=== PATIENT | male | born 1995 | race Caucasian/White ===

== ENCOUNTER → 2017-04-23 | Outpatient (CLI) | payer BC ==
[~2017-04-23] MED LIST: PRD50T PO; RT-ALBUTEROL SULF 2.5 MG/3 ML PRE-MIX VIAL IH ONE
== END ==
LOC: RT 09:07
PROVIDERS: ATTEND Internal Medicine Critical Care Medicine
DX: J45.998 Other asthma (principal)
CPT/HCPCS: 94060; 94640; 94726; 94729

== ENCOUNTER 2017-06-06 20:28 | Emergency (ER) | payer BC ==
[~2017-06-06] VITALS: Ht 177.8 cm; Wt 55.8 kg
[~2017-06-06 20:28] MED LIST changes: -RT-ALBUTEROL SULF 2.5 MG/3 ML PRE-MIX VIAL IH ONE
[2017-06-06 20:55] VITALS: BP 122/86
[2017-06-06] MEDS ORDERED: FLUT1AER IH (21:02)
[2017-06-06] MEDS ORDERED: MONT4GRA PO (21:02)
[2017-06-06] MEDS ORDERED: SULF1TAB35 PO (21:05)
[2017-06-06] MEDS ORDERED: ONDA8TAB13 PO (21:05)
--- NOTE | 2017-06-06 21:06 | ED Integumentary General ---
General Chief Complaint: Skin/Wound Problems Stated Complaint: R KNEE POSS BROWN RECLUSE BITE Nursing Triage Note: PT HERE WITH C/O ABSCESS ON R KNEE FOR 1 DAY. Source: patient Exam Limitations: no limitations History of Present Illness Time seen by provider: 20:55 Initial Comments 21-year-old male patient presents to the emergency department complains of a spider bite to the right knee. Patient reports noticing the area yesterday. Worse today. Timing/Duration: yesterday, getting worse Location: extremities (right knee) Possible Cause: other (possible spider bite) Modifying Factors: worse with other (worse with palpation) Allergies and Home Medications Allergies Coded Allergies: peanut (Verified Allergy, Unknown, 04/23/17) Home Medications No Active Prescriptions or Reported Meds Constitutional: No chills, No fever, No malaise EENTM: no symptoms reported Respiratory: No cough, No short of breath Cardiovascular: no symptoms reported Gastrointestinal: No abdominal pain, No diarrhea, nausea, No vomiting Genitourinary: no symptoms reported Musculoskeletal: no symptoms reported Skin: see HPI Psychiatric/Neurological: Denies Headache, Denies Numbness, Denies Paresthesia , Denies Tingling All Other Systems Reviewed Negative Unless Noted: Yes (Negative excepted noted.) Past Otpktjf-Dcrnba-Lzuivz Hx Patient Social History Recent Foreign Travel: No Contact w/Someone Who Travel: No Recent Infectious Disease Expo: No Immunizations Up To Date Tetanus Booster (TDap): Less than 5yrs Seasonal Allergies Seasonal Allergies: Yes Surgeries History of Surgeries: Yes (wisdom teeth) Respiratory History of Respiratory Disorde: Yes Respiratory Disorders: Asthma Currently Using CPAP: No Currently Using BIPAP: No Cardiovascular History of Cardiac Disorders: No Neurological History of Neurological Disord: No Gastrointestinal History of Gastrointestinal Di: No Musculoskeletal History of Musculoskeletal Dis: No Endocrine History of Endocrine Disorders: No Cancer History of Cancer: No Psychosocial History of Psychiatric Problem: Yes Behavioral Health Disorders: Anxiety Integumentary History of Skin or Integumenta: No Blood Transfusions History of Blood Disorders: No Adverse Reaction to a Blood Tr: No Reviewed Nursing Assessment Reviewed/Agree w Nursing PMH: Yes Family Medical History Significant Family History: Diabetes Physical Exam Vital Signs Vital Sign - Last 12Hours 06/06/17 20:55 Temp 98.8 Pulse 94 Resp 18 B/P (MAP) 122/86 Pulse Ox 99 O2 Delivery Room Air Capillary Refill : Less Than 3 Seconds General Appearance: WD/WN, no apparent distress HEENT: PERRL/EOMI, pharynx normal Neck: supple, normal inspection Cardiovascular: normal peripheral pulses, no edema Extremities: no pedal edema, normal capillary refill Neurologic/Psychiatric: alert, normal mood/affect, oriented x 3 Skin: normal color, warm/dry, other (4 x 6 cm area of erythema and mild warmth of the right anterior knee with central scab. No active drainage, fluctuance, or induration noted.) Skin Problem Location: lower extremities (rt anterior knee) Skin Problem Character: erythema, tenderness, warm, other (4 x 6 cm area of erythema and mild warmth of the right anterior knee with central scab. No active drainage, fluctuance, or induration noted.) Progress/Results/Core Measures Results/Orders My Orders Orders - FERNANDO RICHARDSON Rx-Trimeth/Sulfameth Ds Tab (Rx-Bactrim/ (06/06/17 20:59) Rx-Ondansetron Po (Rx-Zofran Po) (06/06/17 20:59) Vital Signs/I&O Vital Sign - Last 12Hours 06/06/17 20:55 Temp 98.8 Pulse 94 Resp 18 B/P (MAP) 122/86 Pulse Ox 99 O2 Delivery Room Air Blood Pressure Mean: 98 Departure Impression Impression: Primary Impression: Cellulitis Qualified Codes: L03.115 - Cellulitis of right lower limb Disposition: HOME, SELF-CARE Condition: Improved Departure-Patient Inst. Decision time for Depature: 21:03 Referrals: DAR ALVAREZ MD (PCP/Family) Primary Care Physician Patient Instructions: Cellulitis (Skin Infection), Adult (DC) Add. Discharge Instructions: All discharge instructions reviewed with patient and/or family. Voiced understanding. Medications as instructed. Tylenol extra strength over-the- counter as directed for pain. Ibuprofen 800 mg by mouth every 8 hours as needed for pain. Elevate the right knee on pillows, ice pack for 20 minute intervals as needed for pain. Shower with antibacterial soap. Follow-up with Dr. Alvarez Friday as an outpatient for recheck, call first thing Friday morning for appointment time. Return to the emergency department for worsened pain, redness, fever, streaking up the leg, headache, vomiting, or any other concerns. Scripts Ondansetron (Ondansetron Odt) 8 Mg Tab.rapdis 8 MG PO Q6H Y for NAUSEA/VOMITING-1ST LINE, #10 TAB 0 Refills Prov: FERNANDO RICHARDSON 06/06/17 Sulfamethoxazole/Trimethoprim (Bactrim Ds Tablet) 1 Each Tablet 1 EACH PO BID, #20 TAB 0 Refills Prov: FERNANDO RICHARDSON 06/06/17 Work/School Note: Work Release Form Date Seen in the Emergency Department: Jun 06, 2017 Return to Work: Jun 08, 2017 Restrictions: No Restrictions FERNANDO RICHARDSON Jun 06, 2017 21:06
[2017-06-06] MEDS: RX-TRIMETH/SULFA. 160-800 MG (BACTRIM DS) TAB PPK#2 PO STA (21:14)
[2017-06-06] MEDS: RX-ONDANSETRON 4 MG ODT (ZOFRAN) PPK #4 PO STA (21:14)
--- OUTSIDE RECORDS SUMMARY | 2017-06-09 08:33 | XMS REPORT | Continuity of Care Document ---
Author Author [facility] Address Unknown Phone Unavailable Allergies Active Description Code Type Severity Reaction Onset Reported/Identified Relationship to Patient Clinical Status Yes peanut [id number] Drug Allergy Unknown N/A 04/23/2017 Medications Problems Date Dx Coded Attending Type Code Diagnosis Diagnosed By 06/17/2012 [facility], LUAN Cedeno V03.89 MENINGOCOCCAL DX 06/17/2012 [facility], LUAN A V06.1 TDAP DX 06/17/2012 [facility], LUAN A V03.89 MENINGOCOCCAL DX 06/17/2012 [facility], LUAN A V06.1 TDAP DX 06/17/2012 [facility], LUAN A V03.89 MENINGOCOCCAL DX 06/17/2012 [facility], LUAN A V06.1 TDAP DX 06/17/2012 JAYY STANTON, KASSIE V03.89 MENINGOCOCCAL DX 06/17/2012 JAYY STANTON, KASSIE V06.1 TDAP DX 06/17/2012 [facility], LUAN A V03.89 MENINGOCOCCAL DX 06/17/2012 [facility], LUAN A V06.1 TDAP DX 06/17/2012 JAYY STANTON, KASSIE V03.89 MENINGOCOCCAL DX 06/17/2012 JAYY STANTON, KASSIE V06.1 TDAP DX 06/17/2012 [facility], LUAN A V03.89 MENINGOCOCCAL DX 06/17/2012 [facility], LUAN A V06.1 TDAP DX 06/17/2012 [facility], LUAN A V03.89 MENINGOCOCCAL DX 06/17/2012 [facility], LUAN A V06.1 TDAP DX 06/17/2012 [facility], LUAN A V03.89 MENINGOCOCCAL DX 06/17/2012 [facility], LUAN A V06.1 TDAP DX 06/17/2012 [facility], LUAN A V03.89 MENINGOCOCCAL DX 06/17/2012 B[facility], LUAN A V06.1 TDAP DX 06/17/2012 BORJA [facility]SC[facility], LUAN A V03.89 MENINGOCOCCAL DX 06/17/2012 BORJA [facility]SC[facility], LUAN A V06.1 TDAP DX 06/17/2012 MELISSA HUDSON APRNYL A V03.89 MENINGOCOCCAL DX 06/17/2012 TIMOTHYDAKOTAHEleuterio BERUMENNANUJA A V06.1 TDAP DX 07/30/2012 Ot 784.2 SWELLING IN HEAD NECK 07/30/2012 Ot 786.05 SHORTNESS OF BREATH 07/30/2012 Ot V15.01 ALLERGY TO PEANUTS 09/24/2013 [facility], LUAN A 296.22 MO DEPRESSIVE SINGLE MODERATE 09/24/2013 BORJA [facility]SC[facility], LUAN A 296.22 MO DEPRESSIVE SINGLE MODERATE 09/24/2013 BORJA LSC[facility], LUAN A 296.22 MO DEPRESSIVE SINGLE MODERATE 09/24/2013 KASSIE HOPE MD 296.22 MO DEPRESSIVE SINGLE MODERATE 09/24/2013 BORJA LSCS, LUAN A 296.22 MO DEPRESSIVE SINGLE MODERATE 09/24/2013 KASSIE HOPE MD 296.22 MO DEPRESSIVE SINGLE MODERATE 09/24/2013 BORJA LSCS, LUAN A 296.22 MO DEPRESSIVE SINGLE MODERATE 09/24/2013 BORJA LSCS, LUAN A 296.22 MO DEPRESSIVE SINGLE MODERATE 09/24/2013 BORJA LSCS, LUAN A 296.22 MO DEPRESSIVE SINGLE MODERATE 09/24/2013 BORJA LSCS, LUAN A 296.22 MO DEPRESSIVE SINGLE MODERATE 09/24/2013 BORAJ LSCS, LUAN A 296.22 MO DEPRESSIVE SINGLE MODERATE 09/24/2013 ANUJA HUDSON APRN A 296.22 MO DEPRESSIVE SINGLE MODERATE 11/09/2013 KASSIE HOPE MD 300.23 AN SOCIAL PHOBIA 11/09/2013 KASSIE HOPE MD 314.00 ADHD INATTENTIVE 11/09/2013 BORJA LSCS, LUAN A 300.23 AN SOCIAL PHOBIA 11/09/2013 BORJA LSC[facility], LUAN A 314.00 ADHD INATTENTIVE 11/09/2013 KASSIE HOPE MD 300.23 AN SOCIAL PHOBIA 11/09/2013 KASSIE HOPE MD 314.00 ADHD INATTENTIVE 11/09/2013 BORJA LSCS, LUAN A 300.23 AN SOCIAL PHOBIA 11/09/2013 BORJA LSCS, LUAN A 314.00 ADHD INATTENTIVE 11/09/2013 BORJA LSCS, LUAN A 300.23 AN SOCIAL PHOBIA 11/09/2013 BORJA LSCS, LUAN A 314.00 ADHD INATTENTIVE 11/09/2013 BORJA LSCS, LUAN A 300.23 AN SOCIAL PHOBIA 11/09/2013 BORJA LSCS, LUAN A 314.00 ADHD INATTENTIVE 11/09/2013 BORJA LSCS, LUAN A 300.23 AN SOCIAL PHOBIA 11/09/2013 BORJA LSCS, LUAN A 314.00 ADHD INATTENTIVE 11/09/2013 BORJA LSCS, LUAN A 300.23 AN SOCIAL PHOBIA 11/09/2013 BORJA LSCS, LUAN A 314.00 ADHD INATTENTIVE 11/09/2013 RAJDAKOTAHE PULMONARY NURSE PRACTITIONER, ANUJA A 300.23 AN SOCIAL PHOBIA 11/09/2013 RAJDAKOTAHE PULMONARY NURSE PRACTITIONER, ANUJA A 314.00 ADHD INATTENTIVE 08/08/2014 RAJDAKOTAHE PULMONARY NURSE PRACTITIONER, ANUJA A 008.8 GASTROENTERITIS, VIRAL 08/08/2014 RAJOTTE PULMONARY NURSE PRACTITIONER, ANUJA A 079.99 VIRAL SYNDROME 08/08/2014 RAJOTTE PULMONARY NURSE PRACTITIONER, ANUJA A 787.02 NAUSEA ALONE 12/25/2015 RAMU STANTON, NUZHAT T Ot F17.210 NICOTINE DEPENDENCE, CIGARETTES, UNCOMPL 12/25/2015 RAMU STANTON, NUZHAT T Ot F41.9 ANXIETY DISORDER, UNSPECIFIED 12/25/2015 RAMU STANTON, NUZHAT T Ot R00.2 PALPITATIONS 12/25/2015 RAMU STANTON, NUZHAT T Ot R35.0 FREQUENCY OF MICTURITION 12/27/2015 RAMU STANTON, NUZHAT T Ot F17.210 12/27/2015 RAMU STANTON, NUZHAT T Ot F41.9 12/27/2015 RAMU STANTON, NUZHAT T Ot R00.2 12/27/2015 RAMU TSANTON, NUZHAT T Ot R35.0 01/25/2016 CRISTAL STANTON, DAR R Ot R06.02 01/26/2016 CRISTAL STANTON, DAR R Ot R06.02 SHORTNESS OF BREATH 01/29/2016 CRISTAL STANTON, DAR R Ot R06.02 SHORTNESS OF BREATH 02/14/2016 SOBEIDA BEE MDYD R Ot R06.02 SHORTNESS OF BREATH 02/14/2016 SOBEIDA BEE MDYD R Ot R06.02 SHORTNESS OF BREATH 04/17/2016 SOBEIDA BEE MDYD R Ot R06.02 SHORTNESS OF BREATH 04/17/2016 SOBEIDA BEE MDYD R Ot R06.02 SHORTNESS OF BREATH 04/19/2016 DEEPIKA NAJERA DO M Ot J45.998 OTHER ASTHMA 05/09/2016 DEEPIKA NAJERA DO Ot J45.998 OTHER ASTHMA 07/23/2016 SOBEIDA BEE MDYD R Ot R06.02 SHORTNESS OF BREATH 07/23/2016 DAR BEE MD R Ot R06.02 SHORTNESS OF BREATH 07/23/2016 DEEPIKA NAJERA DO Ot J45.998 OTHER ASTHMA 12/16/2016 SOBEIDA BEE MDYD R Ot R06.02 SHORTNESS OF BREATH 12/16/2016 DAR BEE MD R Ot R06.02 SHORTNESS OF BREATH 12/16/2016 DEEPIKA NAJERA DO M Ot J45.998 OTHER ASTHMA 04/23/2017 SOBEIDA BEE MDYD R Ot R06.02 SHORTNESS OF BREATH 04/23/2017 SOBEIDA BEE MDYD R Ot R06.02 SHORTNESS OF BREATH 04/23/2017 DEEPIKA NAJERA DO M Ot J45.998 OTHER ASTHMA 05/15/2017 DEEPIKA NAJERA DO M Ot J45.998 OTHER ASTHMA Procedures Code [place] [address] PSYCH DIAGNOSTIC EVALUATION 10/12/2013 12997 PSYTX PT&/FAMILY 45 MINUTES 10/22/2013 26292 PSYTX PT&/FAMILY 30 MINUTES 11/04/2013 78093 PSYTX PT&/FAMILY 45 MINUTES 12/06/2013 48332 PSYTX PT&/FAMILY 45 MINUTES 12/17/2013 14116 PSYTX PT&/FAMILY 45 MINUTES 01/14/2014 98495 PSYTX PT&/FAMILY 45 MINUTES 01/27/2014 81367 PSYTX PT&/FAMILY 45 MINUTES 01/31/2014 78572 PSYTX PT&/FAMILY 30 MINUTES 02/21/2014 Results Encounters ACCT No. Visit Date/Time Discharge Status Pt. Type Provider Facility Loc./Unit Complaint [id number] 08/08/2014 11:02:00 08/08/2014 23: 59:59 CLS Outpatient ANUJA HUDSON APRN [id number] 02/21/2014 14:00:00 02/21/2014 23: 59:59 CLS Outpatient BORJA LSLUAN Wilian [id number] 01/31/2014 11:56:00 01/31/2014 23: 59:59 CLS Outpatient BORJA LSCSLUAN Wilian [id number] 01/27/2014 10:33:00 01/27/2014 23: 59:59 CLS Outpatient BORJA LSCS LUAN Wilian [id number] 01/14/2014 13:30:00 01/14/2014 23: 59:59 CLS Outpatient BORJA LSCS LUAN Cedeno [id number] 12/17/2013 13:42:00 12/17/2013 23: 59:59 CLS Outpatient BORJA LSLUAN Wilian [id number] 12/07/2013 12:01:00 12/07/2013 23: 59:59 CLS Outpatient KASSIE HOPE MD [id number] 12/06/2013 10:30:00 12/06/2013 23: 59:59 CLS Outpatient BORJA LSCS LUAN Cedeno [id number] 11/09/2013 09:45:00 11/09/2013 23: 59:59 CLS Outpatient KASSIE HOPE MD [id number] 11/02/2013 14:30:00 11/02/2013 23: 59:59 CLS Outpatient BORJA LSCSMEAGHANLUAN A [id number] 10/22/2013 14:30:00 10/22/2013 23: 59:59 CLS Outpatient BORJA LSCS LUAN Cedeno [id number] 09/24/2013 14:21:00 09/24/2013 23: 59:59 CLS Outpatient BORJA LSCSLUAN Wilian [id number] 04/23/2017 09:07:00 2016 23:59:59 CLS Outpatient DEEPIKA NAJERA DO [facility] RT J45.998 [id number] 04/17/2016 07:20:00 2015 23:59:59 CLS Outpatient DEEPIKA NAJERA DO [facility] RT ASTHMA [id number] 01/25/2016 12:40:00 2015 23:59:59 CLS Outpatient DAR BEE MD [facility] CARD SOA [id number] 01/24/2016 12:25:00 2015 23:59:59 CLS Outpatient DAR BEE MD [facility] RAD PERSISENT SOA [id number] 12/25/2015 02:05:00 2015 03:22:00 DIS Emergency RAMU STANTON, NUZHAT Alaniz [facility] ER NAUSIA/VOMITING [id number] 06/06/2017 20:30:00 ACT Emergency FERNANDO LO [facility] ER R KNEE POSS BROWN RECLUSE BITE [id number] 07/30/2012 12:18:00 Document Registration
--- OUTSIDE RECORDS SUMMARY | 2017-06-09 08:33 | XMS REPORT ---
Author Author ANUJA HUDSON [facility] e[employer] Address Unknown Phone Unavailable Care Team Providers Care Rcp Name Role Phone ANUJA HUDSON CP Unavailable Allergies No Known Allergies Problems Problem Type Condition Code Onset Dates Condition Status Problem Social phobia 300.23 Active Problem Intestinal infection due to other organism, NEC 008.8 Active Problem Attention deficit disorder of childhood without mention of hyperactivity 314.00 Active Assessment Encounter for immunization Z23 Active Problem DTAP TEST V06.1 Active Problem Major depressive disorder, single episode, moderate 296.22 Active Problem MENINGOCOCCAL DX V03.89 Active Problem Nausea alone 787.02 Active Problem Unspecified viral infection, in conditions classified elsewhere and of unspecified site 079.99 Active Problem Nondependent tobacco use disorder 305.1 Active Problem Cough 786.2 Active Medications No Known Medications Procedures Procedure Coding System Code Date SINGLE IMMUNIZATION ADMIN CPT-4 78814 Sep 05, 2015 VARICELLA CPT-4 37152 Sep 05, 2015 Results No Known Results Immunizations Vaccine Administration Date VARICELLA Sep 05, 2015 Summary Purpose eClinicalWorks Submission
== END 2017-06-06 21:17 | disposition home or self-care (01) ==
LOC: EDUNIT# 20:28 → ER 20:30
DX: L03.115 Cellulitis of right lower limb (principal); F41.9 Anxiety disorder, unspecified; J45.909 Unspecified asthma, uncomplicated
CPT/HCPCS: 99281

== ENCOUNTER 2019-07-19 14:19 | Emergency (ER) | payer BC ==
[~2019-07-19] VITALS: Ht 177.8 cm; Wt 59.0 kg
[~2019-07-19 14:19] MED LIST changes: +FLUT1AER IH; +MONT4GRA PO; +ONDA8TAB13 PO; +SULF1TAB35 PO
[2019-07-19] MEDS ORDERED: LACTATED RINGERS 1,000 ML IV ONE (14:38)
[2019-07-19 14:46] LABS: BASOPHILS % (AUTO) 1 % (0-10); EOSINOPHILS # (AUTO) 0.3 10^3/uL (0.0-0.3); EOSINOPHILS % (AUTO) 4 % (0-10); HEMATOCRIT 44 % (40-54); HEMOGLOBIN 15.7 G/DL (13.3-17.7); LYMPHOCYTES # (AUTO) 1.3 X 10^3 (1.0-4.0); LYMPHOCYTES % (AUTO) 21 % (12-44); MEAN CORPUSCULAR HEMOGLOBIN 29 PG (25-34); MEAN CORPUSCULAR HGB CONC 36 G/DL (32-36); MEAN CORPUSCULAR VOLUME 82 FL (80-99); MEAN PLATELET VOLUME 9.8 FL (7.4-10.4); MONOCYTES # (AUTO) 0.5 X 10^3 (0.0-1.0); MONOCYTES % (AUTO) 8 % (0-12); NEUTROPHILS # (AUTO) 4.1 X 10^3 (1.8-7.8); NEUTROPHILS % (AUTO) 66 % (42-75); PLATELET COUNT 278 10^3/uL (130-400); RED CELL DISTRIBUTION WIDTH 12.2 % (10.0-14.5); WHITE BLOOD COUNT 6.3 10^3/uL (4.3-11.0)
[2019-07-19] MEDS ORDERED: KETOROLAC 30 MG/ML VIAL IVP STA (14:48)
[2019-07-19 15:05] LABS: ALANINE AMINOTRANSFERASE 14 U/L (0-55); ALBUMIN 4.9 GM/DL (3.2-4.5); ALKALINE PHOSPHATASE 60 U/L (40-136); BUN/CREATININE RATIO 11; CALCIUM 9.5 MG/DL (8.5-10.1); CARBON DIOXIDE 30 MMOL/L (21-32); CHLORIDE 104 MMOL/L (98-107); CREATININE SERUM 1.04 MG/DL (0.60-1.30); GFR ESTIMATED > 60; GLUCOSE 90 MG/DL (70-105); POTASSIUM 4.2 MMOL/L (3.6-5.0); SODIUM 142 MMOL/L (135-145); TOTAL PROTEIN 7.4 GM/DL (6.4-8.2)
--- NOTE | 2019-07-19 15:16 | Diagnostic Imaging Report ---
INDICATION: Chest tightness. TIME OF EXAM: 03:10 p.m. Correlation is made with prior chest from 01/24/2016. FINDINGS: The heart size is normal. The pulmonary vascularity is unremarkable. The lungs are clear. No infiltrate, effusion or pneumothorax is detected. IMPRESSION: No acute cardiopulmonary process is detected. Dictated by: Dictated on workstation # [id number]
--- NOTE | 2019-07-19 15:20 | ED Chest Pain ---
General Chief Complaint: Chest Pain Stated Complaint: CHEST PAIN Nursing Triage Note: PT HERE WITH C/O ABSCESS ON R KNEE FOR 1 DAY. (MATTHEW ALVA PA STUDENT) History of Present Illness Date Seen by Provider: Jul 19, 2019 Time Seen by Provider: 14:40 Initial Comments Patient presents today with a 3 day history of chest tightness that radiates to his left shoulder and arm. He states that the tightness occurred after a long night of binge drinking and smoking cigarettes. The patient vapes daily, but when drinking alcohol he admits to smoking many cigarettes. The patient has a history of anxiety, but states this feels different than an anxiety attack he has had in the past. Nothing alleviates the chest tightness and nothing makes it worse. Timing/Duration: 2-3 days Severity/Quality: mild, tightness Location: substernal, shoulder Radiation: arms (left arm), shoulders Activities at Onset: sleep Prior CP/Workup: no prior chest pain, no prior cardiac workup Modifying Factors: improves with other (nothing alleviates the tightness) ASA po DIRECTOR PROCESS ENGINEERING: No NTG SL DIRECTOR PROCESS ENGINEERING: No Associated Symptoms: denies symptoms (MATTHEW ALVA PA STUDENT) Timing/Duration: 2-3 days Severity/Quality: mild, aching Location: shoulder (left clavicle region) Prior CP/Workup: no prior chest pain, no prior cardiac workup ASA po DIRECTOR PROCESS ENGINEERING: No NTG SL DIRECTOR PROCESS ENGINEERING: No Associated Symptoms: No back pain, No fever/chills, No nausea/vomiting, No shortness of breath, No weakness (ZAID ALFARO MD) Allergies and Home Medications Allergies Coded Allergies: peanut (Verified Allergy, Unknown, 04/23/17) Home Medications Montelukast Sodium 4 Mg Gran.pack, 4 MG PO HS, (Reported) Ondansetron 8 Mg Tab.rapdis, 8 MG PO Q6H PRN for NAUSEA/VOMITING-1ST LINE Prescribed by: FERNANDO RICHARDSON on 06/06/172104 Sulfamethoxazole/Trimethoprim 1 Each Tablet, 1 EACH PO BID Prescribed by: FERNANDO RICHARDSON on 06/06/172104 Patient Home Medication List Home Medication List Reviewed: Yes (ZAID ALAFRO MD) Review of Systems Review of Systems Constitutional: no symptoms reported EENTM: No Symptoms Reported Respiratory: See HPI Cardiovascular: See HPI Gastrointestinal: No Symptoms Reported Genitourinary: No Symptoms Reported Psychiatric/Neurological: See HPI (MATTHEW LAVA STUDENT) Constitutional: no symptoms reported Respiratory: See HPI; Denies Cough Cardiovascular: Chest Pain; Denies Edema Gastrointestinal: No Symptoms Reported Musculoskeletal: joint pain, muscle pain Skin: no symptoms reported Psychiatric/Neurological: Anxiety; Denies Headache (ZAID ALFARO MD) Past Msjnmfn-Zvaxpm-Nhfpax Hx Past Med/Social Hx: Reviewed Nursing Past Med/Soc Hx (ZAID ALFARO MD) Patient Social History Alcohol Use: Rarely Uses Recreational Drug Use: No Smoking Status: Never a Smoker 2nd Hand Smoke Exposure: No Recent Foreign Travel: No Contact w/Someone Who Travel: No Recent Infectious Disease Expo: No Recent Hopitalizations: No Physical Abuse: No Sexual Abuse: No Mistreated: No Fear: No (MATTHEW ALVA) Immunizations Up To Date Tetanus Booster (TDap): Less than 5yrs (MATTHEW ALVA) Seasonal Allergies Seasonal Allergies: Yes (MATTHEW ALVA) Past Medical History Surgeries: Yes (wisdom teeth) Respiratory: Yes Asthma Currently Using CPAP: No Currently Using BIPAP: No Cardiac: No Neurological: No Gastrointestinal: No Musculoskeletal: No Endocrine: No Cancer: No Psychosocial: Yes Anxiety Integumentary: No Blood Disorders: No Adverse Reaction/Blood Tranf: No (MATTHEW ALVA) Family Medical History Reviewed Nursing Family Hx (ZAID ALFARO MD) Diabetes (MATTHEW ALVA) Physical Exam Vital Signs Vital Signs - First Documented 07/19/19 14:25 Temp 37.1 Pulse 94 Resp 12 B/P (MAP) 147/90 (109) Pulse Ox 98 O2 Delivery Room Air (ZAID ALFARO MD) Vital Signs Capillary Refill : Less Than 3 Seconds (MATTHEW ALVA STUDENT) Height, Weight, BMI Height: 5'10.00" Weight: 123lbs. oz. 55.515134kw; 18.46 BMI Method:Stated General Appearance: No Apparent Distress HEENT: PERRL/EOMI, TMs Normal, Normal ENT Inspection, Pharynx Normal Respiratory: Chest Non Tender, Lungs Clear, Normal Breath Sounds, No Accessory Muscle Use, No Respiratory Distress Cardiovascular: Regular Rate, Rhythm, No Edema, No Gallop, No JVD, No Murmur, Normal Peripheral Pulses Gastrointestinal: Normal Bowel Sounds, No Organomegaly, No Pulsatile Mass, Non Tender, Soft (MATTHEW ALVA STUDENT) General Appearance: WD/WN, Anxious HEENT: PERRL/EOMI, Pharynx Normal Respiratory: Lungs Clear, Normal Breath Sounds Cardiovascular: Regular Rate, Rhythm, No Murmur Gastrointestinal: Non Tender, Soft Extremity: Normal Range of Motion, Other (mild tenderness along the left clavicle) Neurologic/Psychiatric: Alert, Oriented x3 (ZAID ALFARO MD) Progress/Results/Core Measures Results/Orders Lab Results Laboratory Tests Test 07/19/19 14:35 Range/Units White Blood Count 6.3 4.3-11.0 10^3/uL Red Blood Count 5.36 4.35-5.85 10^6/uL Hemoglobin 15.7 13.3-17.7 G/DL Hematocrit 44 40-54 % Mean Corpuscular Volume 82 80-99 FL Mean Corpuscular Hemoglobin 29 25-34 PG Mean Corpuscular Hemoglobin Concent 36 32-36 G/DL Red Cell Distribution Width 12.2 10.0-14.5 % Platelet Count 278 130-400 10^3/uL Mean Platelet Volume 9.8 7.4-10.4 FL Neutrophils (%) (Auto) 66 42-75 % Lymphocytes (%) (Auto) 21 12-44 % Monocytes (%) (Auto) 8 0-12 % Eosinophils (%) (Auto) 4 0-10 % Basophils (%) (Auto) 1 0-10 % Neutrophils # (Auto) 4.1 1.8-7.8 X 10^3 Lymphocytes # (Auto) 1.3 1.0-4.0 X 10^3 Monocytes # (Auto) 0.5 0.0-1.0 X 10^3 Eosinophils # (Auto) 0.3 0.0-0.3 10^3/uL Basophils # (Auto) 0.0 0.0-0.1 10^3/uL Sodium Level 142 135-145 MMOL/L Potassium Level 4.2 3.6-5.0 MMOL/L Chloride Level 104 98-107 MMOL/L Carbon Dioxide Level 30 21-32 MMOL/L Anion Gap 8 5-14 MMOL/L Blood Urea Nitrogen 11 7-18 MG/DL Creatinine 1.04 0.60-1.30 MG/DL Estimat Glomerular Filtration Rate > 60 BUN/Creatinine Ratio 11 Glucose Level 90 70-105 MG/DL Calcium Level 9.5 8.5-10.1 MG/DL Corrected Calcium 8.5-10.1 MG/DL Total Bilirubin 1.0 0.1-1.0 MG/DL Aspartate Amino Transf (AST/SGOT) 19 5-34 U/L Alanine Aminotransferase (ALT/SGPT) 14 0-55 U/L Alkaline Phosphatase 60 40-136 U/L Troponin I < 0.028 <0.028 NG/ML Total Protein 7.4 6.4-8.2 GM/DL Albumin 4.9 H 3.2-4.5 GM/DL (ZAID ALFARO MD) My Orders Orders - ZAID ALFARO MD Ekg Tracing (07/19/19 14:38) Chest Pa/Lat (2 View) (07/19/19 14:38) Cbc With Automated Diff (07/19/19 14:38) Comprehensive Metabolic Panel (07/19/19 14:38) Troponin I (07/19/19 14:38) Ed Iv/Invasive Line Start (07/19/19 14:38) Lactated Ringers (Lr 1000 Ml Iv Solution (07/19/19 14:38) Ketorolac Injection (Toradol Injection) (07/19/19 14:48) (ZAID ALFARO MD) Medications Given in ED Current Medications Medications Dose Ordered Sig/Selma Route Start Time Stop Time Status Last Admin Dose Admin Lactated Ringer's 1,000 ml @ 0 mls/hr Q0M ONCE IV 07/19/19 14:38 07/19/19 14:41 DC 07/19/19 14:48 1,000 MLS/HR (ZAID ALFARO MD) Vital Signs/I&O 07/19/19 14:25 Temp 37.1 Pulse 94 Resp 12 B/P (MAP) 147/90 (109) Pulse Ox 98 O2 Delivery Room Air (ZAID ALFARO MD) Blood Pressure Mean: 98 Progress Progress Note : Progress Note I have seen and evaluated the patient and agree with above except as indicated. Have directed the plan of care. Patient is here with left upper chest pain after drinking episode on Friday night. Reports that he got quite drunk. Denies any specific injury although there was reports that he may have fallen in the bathroom. Doing better but today got a little worse. Does have history of anxiety and thinks that that may be part of it. IV, labs, EKG and chest x-ray ordered. Lactated Ringer's 1 L bolus and Toradol 30 mg IV ordered. Monitor patient. While in 550: No acute findings and patient is doing much better. Discharged home with return precautions. Patient verbalize understanding instructions and agreement with plan. (ZAID ALFARO MD) Initial ECG Impression Date: Jul 19, 2019 Initial ECG Impression Time: 14:42 Initial ECG Rate: 93 Initial ECG Rhythm: Normal Sinus Initial ECG Impression: Normal Initial ECG Comparisson: No Previous ECG Available Comment Sinus rhythm with normal axis. No evidence of ST elevation SC. No previous available for comparison. Interpreted by me. (ZAID ALFARO MD) Diagnostic Imaging Diagonstic Imaging: Xray Plain Films/CT/US/NM/MRI: chest Comments NAME: LOC [facility] MED REC#: [id number] PHYSICIAN: ZAID ALFARO MD CC: PIPER MCNALLY MD; ZAID ALFARO MD Page 1 of 1 RADIOLOGY REPORT [facility] [place], [place] CC: PIPER MCNALLY MD; ZAID ALFARO MD Page 1 of 1 RADIOLOGY REPORT NAME: [facility] MED REC#: [id number] PT STATUS: REG ER : 1995 PHYSICIAN: ZAID ALFARO MD ADMIT DATE: 07/19/19/ER Signed Date of Exam: 07/19/19 CHEST PA/LAT (2 VIEW) INDICATION: Chest tightness. TIME OF EXAM: 03:10 p.m. Correlation is made with prior chest from 01/24/2016. FINDINGS: The heart size is normal. The pulmonary vascularity is unremarkable. The lungs are clear. No infiltrate, effusion or pneumothorax is detected. IMPRESSION: No acute cardiopulmonary process is detected. Dictated by: Dictated on workstation # [id number] Dict: 07/19/19 1511 Trans: 07/19/19 1538 Interpreted by: PIPER MCNALLY MD Electronically signed by: PIPER MCNALLY MD 07/19/19 1538 (ZAID ALFARO MD) Departure Impression Primary Impression: Chest pain Qualified Codes: R07.9 - Chest pain, unspecified Additional Impressions: Chest wall pain Anxiety Disposition: 01 HOME, SELF-CARE Condition: Improved Departure-Patient Inst. Decision time for Depature: 16:02 (ZAID ALFARO MD) Referrals: DAR BEE MD (PCP/Family) Primary Care Physician Patient Instructions: Chest Pain (DC), Chest Pain That Is Not Caused by the Heart (DC) Add. Discharge Instructions: All discharge instructions reviewed with patient and/or family. Voiced understanding. You may take Tylenol/acetaminophen 1000 mg every 8 hours as needed for pain. You may take ibuprofen 600 mg every 8 hours as needed for pain. Drink plenty fluids and eat a light diet. Follow-up with your doctor to discuss the anxiety concerns. Return for worse pain, fever, vomiting, weakness, breathing problems or other concerns as needed. Scripts Hydroxyzine HCl (Hydroxyzine HCl) 25 Mg Tablet 25 MG PO Q8H PRN for ANXIETY, #20 TAB 0 Refills Prov: ZAID ALFARO MD 07/19/19 MATTHEW ALVA STUDENT Jul 19, 2019 15:20 ZAID ALFARO MD Jul 19, 2019 15:59
[2019-07-19] MEDS ORDERED: HYDR-700 PO (16:00)
[2019-07-19 16:09] VITALS: BP 120/82
== END 2019-07-19 16:10 | disposition home or self-care (01) ==
LOC: EDUNIT# 14:19 → ER 14:20
DX: R07.89 Other chest pain (principal); F41.9 Anxiety disorder, unspecified; J45.909 Unspecified asthma, uncomplicated; F17.290 Nicotine dependence, other tobacco product, uncomplicated; F17.210 Nicotine dependence, cigarettes, uncomplicated
CPT/HCPCS: 36415; 71046; 80053; 84484; 85025; 93005

== ENCOUNTER 2021-01-21 08:01 | Emergency (ER) | payer BC ==
[~2021-01-21] VITALS: Ht 175 cm; Wt 58.9 kg
[~2021-01-21 08:01] MED LIST changes: +HYDR-700 PO
--- NOTE | 2021-01-21 08:28 | ED General ---
General Chief Complaint: Dizziness/Syncope Stated Complaint: DIZZINESS Nursing Triage Note: pt presents to ed via pov from work with complaints of dizziness and tremors on and off for a few weeks but worse this am. Nursing Sepsis Screen: No Definite Risk Source of Information: Patient Exam Limitations: No Limitations History of Present Illness Date Seen by Provider: Jan 21, 2021 Time Seen by Provider: 08:11 Initial Comments Here with report of acute onset of dizziness and feeling weak at has happened occasionally but occurred this morning. He had actually got up and gone to work and was working when he started to feel this way. He had not eaten breakfast at that time. He went ahead and drink a bottle water and ate a beef jerky stick. That helped a little bit but did not completely resolve the symptoms so he presented here for further evaluation. Follows with Dr. Winston. Last visit with him was a month and a half ago regarding his skin allergies. Does admit to seasonal allergies as well and is currently taking his Zyrtec and has not missed a dose. Denies nausea, vomiting, diarrhea, weakness otherwise, chest pain or breathing problems. Timing/Duration: 1 Hour, Changing Over Time Severity: Mild, Moderate Associated Systoms: Weakness Allergies and Home Medications Allergies Coded Allergies: peanut (Verified Allergy, Unknown, 04/23/17) Home Medications Hydroxyzine HCl 25 Mg Tablet, 25 MG PO Q8H PRN for ANXIETY Prescribed by: ZAID ALFARO on 07/19/19 1600 Montelukast Sodium 4 Mg Gran.pack, 4 MG PO HS, (Reported) Ondansetron 8 Mg Tab.rapdis, 8 MG PO Q6H PRN for NAUSEA/VOMITING-1ST LINE Prescribed by: FERNANDO RICHARDSON on 06/06/172104 Sulfamethoxazole/Trimethoprim 1 Each Tablet, 1 EACH PO BID Prescribed by: FERNANDO RICHARDSON on 06/06/172104 Patient Home Medication List Home Medication List Reviewed: Yes Review of Systems Review of Systems Constitutional: see HPI, dizziness, weakness EENTM: no symptoms reported Respiratory: no symptoms reported Cardiovascular: No palpitations, No syncope Genitourinary: no symptoms reported Psychiatric/Neurological: See HPI Past Wjadsps-Wmhrwl-Xdsktq Hx Past Med/Social Hx: Reviewed Nursing Past Med/Soc Hx Patient Social History Alcohol Use: Occasionally Uses Number of Drinks Today: FF Alcohol Beverage of Choice: Vodka Type Used: Cigarettes, Electronic/Vapor 2nd Hand Smoke Exposure: No Recent Infectious Disease Expo: No Recent Hopitalizations: No Immunizations Up To Date Tetanus Booster (TDap): Less than 5yrs Seasonal Allergies Seasonal Allergies: Yes Past Medical History Surgeries: Yes (wisdom teeth) Respiratory: Yes Asthma Currently Using CPAP: No Currently Using BIPAP: No Cardiac: No Neurological: No Genitourinary: No Gastrointestinal: No Musculoskeletal: No Endocrine: No HEENT: No Cancer: No Psychosocial: Yes Anxiety, Depression Integumentary: No Blood Disorders: No Adverse Reaction/Blood Tranf: No Family Medical History Reviewed Nursing Family Hx Diabetes Physical Exam Vital Signs Vital Signs - First Documented 01/21/21 08:12 Temp 36.0 Pulse 85 Resp 16 B/P (MAP) 130/85 (100) Pulse Ox 99 Capillary Refill : Less Than 3 Seconds Height, Weight, BMI Height: 5'10.00" Weight: 123lbs. oz. 55.937408bn; 19.00 BMI Method:Stated General Appearance: No Apparent Distress, WD/WN HEENT: PERRL/EOMI, Pharynx Normal Neck: Non Tender, Supple Respiratory: Lungs Clear, Normal Breath Sounds Cardiovascular: Regular Rate, Rhythm, No Murmur Gastrointestinal: Non Tender, Soft Neurologic/Psychiatric: Alert, Oriented x3 Skin: Normal Color, Warm/Dry Progress/Results/Core Measures Suspected Sepsis Recent Fever Within 48 Hours: No Infection Criteria Present: None New/Unexplained Altered Menta: No Sepsis Screen: No Definite Risk SIRS Temperature: Pulse: 85 Respiratory Rate: 16 Laboratory Tests 01/21/21 08:28: White Blood Count 5.6 Blood Pressure 130 /85 Mean: 100 Laboratory Tests 01/21/21 08:28: Creatinine 1.10, Platelet Count 256, Total Bilirubin 0.5 Results/Orders Lab Results Laboratory Tests Test 01/21/21 08:16 01/21/21 08:28 Range/Units Glucometer 94 70-110 MG/DL White Blood Count 5.6 4.3-11.0 10^3/uL Red Blood Count 5.23 4.30-5.52 10^6/uL Hemoglobin 14.9 13.3-17.7 g/dL Hematocrit 44 40-54 % Mean Corpuscular Volume 85 80-99 fL Mean Corpuscular Hemoglobin 29 25-34 pg Mean Corpuscular Hemoglobin Concent 34 32-36 g/dL Red Cell Distribution Width 11.9 10.0-14.5 % Platelet Count 256 130-400 10^3/uL Mean Platelet Volume 9.7 9.0-12.2 fL Immature Granulocyte % (Auto) 1 % Neutrophils (%) (Auto) 58 42-75 % Lymphocytes (%) (Auto) 25 12-44 % Monocytes (%) (Auto) 9 0-12 % Eosinophils (%) (Auto) 6 0-10 % Basophils (%) (Auto) 1 0-10 % Neutrophils # (Auto) 3.3 1.8-7.8 10^3/uL Lymphocytes # (Auto) 1.4 1.0-4.0 10^3/uL Monocytes # (Auto) 0.5 0.0-1.0 10^3/uL Eosinophils # (Auto) 0.4 H 0.0-0.3 10^3/uL Basophils # (Auto) 0.1 0.0-0.1 10^3/uL Immature Granulocyte # (Auto) 0.0 0.0-0.1 10^3/uL Sodium Level 139 135-145 MMOL/L Potassium Level 4.7 3.6-5.0 MMOL/L Chloride Level 103 98-107 MMOL/L Carbon Dioxide Level 25 21-32 MMOL/L Anion Gap 11 5-14 MMOL/L Blood Urea Nitrogen 14 7-18 MG/DL Creatinine 1.10 0.60-1.30 MG/DL Estimat Glomerular Filtration Rate > 60 BUN/Creatinine Ratio 13 Glucose Level 91 70-105 MG/DL Calcium Level 9.1 8.5-10.1 MG/DL Corrected Calcium 8.5-10.1 MG/DL Total Bilirubin 0.5 0.1-1.0 MG/DL Aspartate Amino Transf (AST/SGOT) 18 5-34 U/L Alanine Aminotransferase (ALT/SGPT) 13 0-55 U/L Alkaline Phosphatase 59 40-136 U/L Total Protein 6.7 6.4-8.2 GM/DL Albumin 4.6 H 3.2-4.5 GM/DL Thyroid Stimulating Hormone (TSH) 0.88 0.35-4.94 UIU/ML My Orders Orders - ZAID ALFARO MD Cbc With Automated Diff (01/21/21 08:22) Comprehensive Metabolic Panel (01/21/21 08:22) Thyroid Stimulating Hormone (01/21/21 08:22) Vital Signs/I&O 01/21/21 08:12 Temp 36.0 Pulse 85 Resp 16 B/P (MAP) 130/85 (100) Pulse Ox 99 Capillary Refill : Less Than 3 Seconds Blood Pressure Mean: 100 Point of Care Testing Finger Stick Blood Glucose: 94 Progress Note : Progress Note Seen and evaluated. Fingerstick blood sugar was 94. We will check basic labs. Patient states overall he is feeling better now but is concerned about what is going on. We will check CBC, CMP and thyroid study. Monitor patient. 917: Labs reviewed and no acute findings. Thyroid studies normal. Patient does admit that he drank a soda first thing this morning to on the way to work. This may be diet related. We did discuss drinking more water and avoiding the soda pop. Also discussed normalizing diet. He will follow-up with his doctor and I will send a copy of the chart to his PCP. Discharged home with return precautions. Patient verbalized understanding of instructions and agreement with plan. Departure Impression Primary Impression: Dizziness Disposition: 01 HOME, SELF-CARE Condition: Improved Departure-Patient Inst. Decision time for Depature: 09:19 Referrals: CLARK WINSTON MD (PCP/Family) Primary Care Physician Patient Instructions: Dizziness, Adult ED Add. Discharge Instructions: All discharge instructions reviewed with patient and/or family. Voiced understanding. Drink plenty of fluids and eat a normal diet. You should avoid soda pop. Try to eat something in the morning before going to work and drinking some water or juice. Follow-up with your doctor for recheck and further evaluation. Return for worse symptoms, weakness, dizziness, nausea, vomiting, chest pain, breathing problems or other concerns as needed. Work/School Note: Work Release Form Date Seen in the Emergency Department: Jan 21, 2021 Return to Work: Jan 22, 2021 Restrictions: No Restrictions Copy Copies To 1: CLARK WINSTON MD, TIMOTHY D MD Jan 21, 2021 08:28
[2021-01-21 08:34] LABS: BASOPHILS # (AUTO) 0.1 10^3/uL (0.0-0.1); BASOPHILS % (AUTO) 1 % (0-10); EOSINOPHILS # (AUTO) 0.4 10^3/uL (0.0-0.3); EOSINOPHILS % (AUTO) 6 % (0-10); HEMATOCRIT 44 % (40-54); HEMOGLOBIN 14.9 g/dL (13.3-17.7); LYMPHOCYTES # (AUTO) 1.4 10^3/uL (1.0-4.0); LYMPHOCYTES % (AUTO) 25 % (12-44); MEAN CORPUSCULAR HEMOGLOBIN 29 pg (25-34); MEAN CORPUSCULAR HGB CONC 34 g/dL (32-36); MEAN CORPUSCULAR VOLUME 85 fL (80-99); MEAN PLATELET VOLUME 9.7 fL (9.0-12.2); MONOCYTES # (AUTO) 0.5 10^3/uL (0.0-1.0); MONOCYTES % (AUTO) 9 % (0-12); NEUTROPHILS # (AUTO) 3.3 10^3/uL (1.8-7.8); NEUTROPHILS % (AUTO) 58 % (42-75); PLATELET COUNT 256 10^3/uL (130-400); WHITE BLOOD COUNT 5.6 10^3/uL (4.3-11.0)
[2021-01-21 08:45] LABS: ALBUMIN 4.6 GM/DL (3.2-4.5); CHLORIDE 103 MMOL/L (98-107); POTASSIUM 4.7 MMOL/L (3.6-5.0); SODIUM 139 MMOL/L (135-145)
[2021-01-21 08:46] LABS: CALCIUM 9.1 MG/DL (8.5-10.1)
[2021-01-21 08:47] LABS: GLUCOSE 91 MG/DL (70-105)
[2021-01-21 08:48] LABS: TOTAL PROTEIN 6.7 GM/DL (6.4-8.2)
[2021-01-21 08:49] LABS: BILIRUBIN,TOTAL 0.5 MG/DL (0.1-1.0); CARBON DIOXIDE 25 MMOL/L (21-32)
[2021-01-21 08:51] LABS: ALKALINE PHOSPHATASE 59 U/L (40-136); GFR ESTIMATED > 60
[2021-01-21 08:52] LABS: BUN/CREATININE RATIO 13
[2021-01-21 08:54] LABS: ALANINE AMINOTRANSFERASE 13 U/L (0-55)
[2021-01-21 09:24] VITALS: BP 125/80
== END 2021-01-21 09:24 | disposition home or self-care (01) ==
LOC: EDUNIT# 08:01 → ER 08:03
DX: R42 Dizziness and giddiness (principal); J45.909 Unspecified asthma, uncomplicated; F41.9 Anxiety disorder, unspecified
CPT/HCPCS: 36415; 80053; 82962; 84443; 85025

== ENCOUNTER 2021-04-26 10:05 | Outpatient (RCR) | payer BC ==
[~2021-04-26 10:05] MED LIST changes: -SULF1TAB35 PO; +SULF1TAB38 PO
[2021-05-18] MEDS ORDERED: ACHD5005 PO (16:06)
== END 2021-05-22 13:25 | disposition home or self-care (01) ==
PROVIDERS: ATTEND Nurse Practitioner
DX: S46.812A Strain of other muscles, fascia and tendons at shoulder and upper arm level, left arm, initial encounter (principal); X58.XXXA Exposure to other specified factors, initial encounter; F17.290 Nicotine dependence, other tobacco product, uncomplicated

== ENCOUNTER 2021-05-18 14:33 | Emergency (ER) | payer BC ==
[~2021-05-18] VITALS: Ht 177.8 cm; Wt 60.0 kg
[2021-05-18] MEDS ORDERED: KETOROLAC 30 MG/ML VIAL IVP ONE (14:45)
--- NOTE | 2021-05-18 14:46 | ED General ---
General Stated Complaint: HEADACHE;NECK PAIN;CHEST PAIN Source of Information: Patient Exam Limitations: No Limitations History of Present Illness Date Seen by Provider: May 18, 2021 Time Seen by Provider: 14:44 Initial Comments to ER with left shoulder pain for 2 years, central chest tingling improved by sleep along with headache & neck pain for 1.5 weeks. Had covid about 3-4 weeks ago. No fevers. Timing/Duration: 1 Week Severity: Moderate Associated Systoms: Cough Allergies and Home Medications Allergies Coded Allergies: peanut (Verified Allergy, Unknown, 04/23/17) Home Medications Hydroxyzine HCl 25 Mg Tablet, 25 MG PO Q8H PRN for ANXIETY Prescribed by: ZAID ALFARO on 07/19/19 1600 Montelukast Sodium 4 Mg Gran.pack, 4 MG PO HS, (Reported) Ondansetron 8 Mg Tab.rapdis, 8 MG PO Q6H PRN for NAUSEA/VOMITING-1ST LINE Prescribed by: FERNANDO RICHARDSON on 06/06/172104 Sulfamethoxazole/Trimethoprim 1 Each Tablet, 1 EACH PO BID Prescribed by: FERNANDO RICHARDSON on 06/06/172104 Patient Home Medication List Home Medication List Reviewed: Yes Review of Systems Review of Systems Constitutional: see HPI EENTM: see HPI Respiratory: see HPI Cardiovascular: no symptoms reported Genitourinary: no symptoms reported Musculoskeletal: no symptoms reported Skin: no symptoms reported Psychiatric/Neurological: No Symptoms Reported Hematologic/Lymphatic: No Symptoms Reported Immunological/Allergic: no symptoms reported Past Sowgntj-Hsryeo-Jsrjcg Hx Immunizations Up To Date Tetanus Booster (TDap): Less than 5yrs Seasonal Allergies Seasonal Allergies: Yes Past Medical History Surgeries: Yes (wisdom teeth) Respiratory: Yes Asthma Currently Using CPAP: No Currently Using BIPAP: No Cardiac: No Neurological: No Genitourinary: No Gastrointestinal: No Musculoskeletal: No Endocrine: No HEENT: No Cancer: No Psychosocial: Yes Anxiety, Depression Integumentary: No Blood Disorders: No Adverse Reaction/Blood Tranf: No Family Medical History Diabetes Physical Exam Vital Signs Capillary Refill : Height, Weight, BMI Height: 5'10.00" Weight: 123lbs. oz. 55.617783qx; 19.00 BMI Method:Stated General Appearance: No Apparent Distress, WD/WN Eyes: Bilateral Eye Normal Inspection, Bilateral Eye PERRL, Bilateral Eye EOMI HEENT: PERRL/EOMI, TMs Normal Neck: Full Range of Motion, Normal Inspection Respiratory: No Accessory Muscle Use, No Respiratory Distress Cardiovascular: Normal Peripheral Pulses, Tachycardia Gastrointestinal: Normal Bowel Sounds, Non Tender, Soft Extremity: Normal Capillary Refill, Normal Inspection Neurologic/Psychiatric: Alert, Oriented x3 Skin: Normal Color, Warm/Dry Progress/Results/Core Measures Suspected Sepsis SIRS Temperature: Pulse: Respiratory Rate: Laboratory Tests 05/18/21 14:50: White Blood Count 5.0 Blood Pressure / Mean: Laboratory Tests 05/18/21 14:50: Creatinine 1.01, Platelet Count 308, Total Bilirubin 1.0 Results/Orders Lab Results Laboratory Tests Test 05/18/21 14:50 Range/Units White Blood Count 5.0 4.3-11.0 10^3/uL Red Blood Count 5.32 4.30-5.52 10^6/uL Hemoglobin 15.2 13.3-17.7 g/dL Hematocrit 44 40-54 % Mean Corpuscular Volume 82 80-99 fL Mean Corpuscular Hemoglobin 29 25-34 pg Mean Corpuscular Hemoglobin Concent 35 32-36 g/dL Red Cell Distribution Width 11.9 10.0-14.5 % Platelet Count 308 130-400 10^3/uL Mean Platelet Volume 9.5 9.0-12.2 fL Immature Granulocyte % (Auto) 0 % Neutrophils (%) (Auto) 60 42-75 % Lymphocytes (%) (Auto) 25 12-44 % Monocytes (%) (Auto) 9 0-12 % Eosinophils (%) (Auto) 5 0-10 % Basophils (%) (Auto) 1 0-10 % Neutrophils # (Auto) 3.0 1.8-7.8 10^3/uL Lymphocytes # (Auto) 1.3 1.0-4.0 10^3/uL Monocytes # (Auto) 0.4 0.0-1.0 10^3/uL Eosinophils # (Auto) 0.2 0.0-0.3 10^3/uL Basophils # (Auto) 0.0 0.0-0.1 10^3/uL Immature Granulocyte # (Auto) 0.0 0.0-0.1 10^3/uL D-Dimer < 0.27 0.00-0.49 UG/ML Sodium Level 143 135-145 MMOL/L Potassium Level 3.8 3.6-5.0 MMOL/L Chloride Level 104 98-107 MMOL/L Carbon Dioxide Level 27 21-32 MMOL/L Anion Gap 12 5-14 MMOL/L Blood Urea Nitrogen 10 7-18 MG/DL Creatinine 1.01 0.60-1.30 MG/DL Estimat Glomerular Filtration Rate 91 BUN/Creatinine Ratio 10 Glucose Level 92 70-105 MG/DL Calcium Level 9.6 8.5-10.1 MG/DL Corrected Calcium 8.5-10.1 MG/DL Total Bilirubin 1.0 0.1-1.0 MG/DL Aspartate Amino Transf (AST/SGOT) 17 5-34 U/L Alanine Aminotransferase (ALT/SGPT) 14 0-55 U/L Alkaline Phosphatase 65 40-136 U/L Troponin I < 0.028 <0.028 NG/ML C-Reactive Protein High Sensitivity 0.02 0.00-0.50 MG/DL Total Protein 7.0 6.4-8.2 GM/DL Albumin 4.7 H 3.2-4.5 GM/DL My Orders Orders - WILLIE CLEMENTS APRN Cbc With Automated Diff (05/18/21 14:43) Comprehensive Metabolic Panel (05/18/21 14:43) Hs C Reactive Protein (05/18/21 14:43) Fibrin Degradation Products (05/18/21 14:43) Chest 1 View, Ap/Pa Only (05/18/21 14:43) Ed Iv/Invasive Line Start (05/18/21 14:43) Ketorolac Injection (Toradol Injection) (05/18/21 14:45) Troponin I (05/18/21 14:54) Medications Given in ED Current Medications Medications Dose Ordered Sig/Selma Route Start Time Stop Time Status Last Admin Dose Admin Ketorolac Tromethamine 15 mg ONCE ONCE IVP 05/18/21 14:45 05/18/21 14:46 DC 05/18/21 14:54 15 MG Vital Signs/I&O Capillary Refill : Departure Communication (Admissions) EKG shows sinus tachycardia rate of 105. Impression Primary Impression: Chest pain Additional Impression: Post-COVID syndrome Disposition: 01 HOME, SELF-CARE Condition: Stable Departure-Patient Inst. Decision time for Depature: 15:49 Referrals: COY MILLARD MD (PCP) Primary Care Physician Patient Instructions: Chest Pain That Is Not Caused by the Heart (DC) Add. Discharge Instructions: 1. Follow-up with your family doctor to further evaluate your symptoms if they are ongoing. In the meantime take the hydrocodone as infrequently as possible in addition to ibuprofen for symptom control. Scripts Hydrocodone/Acetaminophen (Hydrocodone-Acetamin 5-325 mg) 1 Each Tablet 1 TAB PO Q4H PRN for PAIN-MODERATE (5-7), #10 TAB Prov: WILLIE CLEMENTS APRN 05/18/21 WILLIE CLEMENTS APRN May 18, 2021 14:46
[2021-05-18 14:57] LABS: BASOPHILS % (AUTO) 1 % (0-10); EOSINOPHILS # (AUTO) 0.2 10^3/uL (0.0-0.3); EOSINOPHILS % (AUTO) 5 % (0-10); HEMATOCRIT 44 % (40-54); HEMOGLOBIN 15.2 g/dL (13.3-17.7); LYMPHOCYTES # (AUTO) 1.3 10^3/uL (1.0-4.0); LYMPHOCYTES % (AUTO) 25 % (12-44); MEAN CORPUSCULAR HEMOGLOBIN 29 pg (25-34); MEAN CORPUSCULAR HGB CONC 35 g/dL (32-36); MEAN CORPUSCULAR VOLUME 82 fL (80-99); MEAN PLATELET VOLUME 9.5 fL (9.0-12.2); MONOCYTES # (AUTO) 0.4 10^3/uL (0.0-1.0); MONOCYTES % (AUTO) 9 % (0-12); NEUTROPHILS % (AUTO) 60 % (42-75); PLATELET COUNT 308 10^3/uL (130-400)
[2021-05-18 15:08] LABS: ALBUMIN 4.7 GM/DL (3.2-4.5); CHLORIDE 104 MMOL/L (98-107); POTASSIUM 3.8 MMOL/L (3.6-5.0); SODIUM 143 MMOL/L (135-145)
[2021-05-18 15:10] LABS: CALCIUM 9.6 MG/DL (8.5-10.1)
[2021-05-18 15:11] LABS: GLUCOSE 92 MG/DL (70-105)
[2021-05-18 15:12] LABS: CARBON DIOXIDE 27 MMOL/L (21-32)
[2021-05-18 15:14] LABS: ALKALINE PHOSPHATASE 65 U/L (40-136); CREATININE SERUM 1.01 MG/DL (0.60-1.30); GFR ESTIMATED 91
[2021-05-18 15:16] LABS: BUN/CREATININE RATIO 10
[2021-05-18 15:17] LABS: ALANINE AMINOTRANSFERASE 14 U/L (0-55)
--- NOTE | 2021-05-18 15:20 | Diagnostic Imaging Report ---
INDICATION: Chest tingling, seizure. EXAMINATION: Portable chest at 3:17 PM. Heart size and pulmonary vascularity are normal. Lungs are clear. There is no effusion or pneumothorax. IMPRESSION: Negative chest. Dictated by: Dictated on workstation # [id number]
[2021-05-18] MEDS ORDERED: ACHD5005 PO (16:06)
[2021-05-18 16:12] VITALS: BP 113/78
== END 2021-05-18 16:13 | disposition home or self-care (01) ==
LOC: EDUNIT# 14:33 → ER 14:34
DX: R07.9 Chest pain, unspecified (principal); J45.909 Unspecified asthma, uncomplicated; F41.9 Anxiety disorder, unspecified; Z79.899 Other long term (current) drug therapy
CPT/HCPCS: 36415; 71045; 80053; 84484; 85025; 85379; 86141; 93005

== ENCOUNTER → 2021-05-22 | Outpatient (CLI) | payer BC ==
[~2021-05-22] MED LIST changes: +ACHD5005 PO
--- NOTE | 2021-05-22 10:50 | Diagnostic Imaging Report ---
INDICATION: Lump in the posterior left shoulder region superior to the scapula. EXAMINATION: Left upper extremity sonogram limited on 05/22/2021. FINDINGS: There are no solid or cystic lesions noted at the site of palpable abnormality. IMPRESSION: Negative sonogram at the site of palpable concern. If a true palpable abnormality persists, dedicated MRI with and without contrast in the region of concern would be recommended. Dictated by: Dictated on workstation # [id number]
== END ==
LOC: RAD 10:00
PROVIDERS: ATTEND Nurse Practitioner
DX: M62.89 Other specified disorders of muscle (principal); M62.830 Muscle spasm of back
CPT/HCPCS: 76881

== ENCOUNTER 2021-07-08 09:15 | Emergency (ER) | payer BC ==
[~2021-07-08] VITALS: Ht 177.8 cm; Wt 60.0 kg
[2021-07-08] MEDS ORDERED: LACTATED RINGERS 1,000 ML IV STA (09:26)
[2021-07-08 09:44] LABS: BASOPHILS # (AUTO) 0.1 10^3/uL (0.0-0.1); BASOPHILS % (AUTO) 1 % (0-10); EOSINOPHILS # (AUTO) 0.4 10^3/uL (0.0-0.3); EOSINOPHILS % (AUTO) 6 % (0-10); HEMATOCRIT 44 % (40-54); HEMOGLOBIN 15.4 g/dL (13.3-17.7); LYMPHOCYTES # (AUTO) 1.6 10^3/uL (1.0-4.0); LYMPHOCYTES % (AUTO) 25 % (12-44); MEAN CORPUSCULAR HEMOGLOBIN 29 pg (25-34); MEAN CORPUSCULAR HGB CONC 35 g/dL (32-36); MEAN CORPUSCULAR VOLUME 83 fL (80-99); MEAN PLATELET VOLUME 9.8 fL (9.0-12.2); MONOCYTES # (AUTO) 0.5 10^3/uL (0.0-1.0); MONOCYTES % (AUTO) 8 % (0-12); NEUTROPHILS # (AUTO) 3.7 10^3/uL (1.8-7.8); NEUTROPHILS % (AUTO) 59 % (42-75); PLATELET COUNT 292 10^3/uL (130-400); WHITE BLOOD COUNT 6.2 10^3/uL (4.3-11.0)
--- NOTE | 2021-07-08 09:50 | ED General ---
General Chief Complaint: Dizziness/Syncope Stated Complaint: SHAKEY,DIZZY Source of Information: Patient Exam Limitations: No Limitations History of Present Illness Date Seen by Provider: Jul 08, 2021 Time Seen by Provider: 09:31 Initial Comments Here with report of feeling shaky and dizzy this morning. States he got up and drank about 3 ounces of leftover Coca-Cola and went to work. He did drink some water and was feeling okay but then started to feel little shaky. He had a roast beef sandwich and then things did not get better. Ultimately he presented here for this shakiness and dizziness. He had similar presentation in January of this year with very similar onset including drinking the soda pop prior to work early in the morning. He had actually stopped doing that and recently restarted drinking a fair amount of Mountain Dew daily. He did have some of that this morning as well. Seen by me for same presentation last time. Denies fever chills. Denies nausea or vomiting. Did have a vagal episode with IV start here today. Overall doing better now. Timing/Duration: 1-3 Hours Severity: Mild, Moderate Associated Systoms: No Chest Pain, No Cough, No Fever/Chills, No Nausea/Vomiting, No Shortness of Air; Weakness Allergies and Home Medications Allergies Coded Allergies: peanut (Verified Allergy, Unknown, 04/23/17) Patient Home Medication List Home Medication List Reviewed: Yes Fluticasone/Vilanterol (Breo Ellipta 100-25 Mcg INH) 1 Each Blst.w.dev, 1 EACH IH, (Reported) Entered as Reported by: DAVIDSON TREVINO on 06/06/172101 Hydrocodone/Acetaminophen (Hydrocodone-Acetamin 5-325 mg) 1 Each Tablet, 1 TAB PO Q4H PRN for PAIN-MODERATE (5-7) Prescribed by: WILLIE CLEMENTS on 05/18/21 1606 Hydroxyzine HCl (Hydroxyzine HCl) 25 Mg Tablet, 25 MG PO Q8H PRN for ANXIETY Prescribed by: ZAID ALFARO on 07/19/19 1600 Montelukast Sodium (Singulair) 4 Mg Gran.pack, 4 MG PO HS, (Reported) Entered as Reported by: DAVIDSON TREVINO on 06/06/172101 Ondansetron (Ondansetron Odt) 8 Mg Tab.rapdis, 8 MG PO Q6H PRN for NAUSEA/VOMITING-1ST LINE Prescribed by: FERNANDO RICHARDSON on 06/06/172104 Sulfamethoxazole/Trimethoprim (Bactrim Ds Tablet) 1 Each Tablet, 1 EACH PO BID Prescribed by: FERNANDO RICHARDSON on 06/06/172104 Review of Systems Review of Systems Constitutional: see HPI; No chills; dizziness; No fever; weakness EENTM: No nose congestion, No throat pain Respiratory: No cough Cardiovascular: No chest pain, No edema Gastrointestinal: No abdominal pain, No nausea, No vomiting Genitourinary: no symptoms reported Musculoskeletal: no symptoms reported Psychiatric/Neurological: See HPI All Other Systems Reviewed Negative Unless Noted: Yes Past Rrnetha-Gcjrex-Honapr Hx Patient Social History Tobacco Use?: No Use of E-Cig and/or Vaping dev: Yes Substance use?: No Alcohol Use?: No (Former) Immunizations Up To Date Tetanus Booster (TDap): Less than 5yrs Seasonal Allergies Seasonal Allergies: Yes Past Medical History Surgeries: Yes (wisdom teeth) Respiratory: Yes Asthma Currently Using CPAP: No Currently Using BIPAP: No Cardiac: No Neurological: No Genitourinary: No Gastrointestinal: No Musculoskeletal: No Endocrine: No HEENT: No Cancer: No Psychosocial: Yes Anxiety, Depression Integumentary: No Blood Disorders: No Adverse Reaction/Blood Tranf: No Family Medical History Reviewed Nursing Family Hx Diabetes Physical Exam Vital Signs Vital Signs - First Documented 07/08/21 09:20 Temp 36.3 Pulse 105 Resp 18 B/P (MAP) 146/80 (102) Pulse Ox 99 O2 Delivery Room Air Capillary Refill : Height, Weight, BMI Height: 5'10.00" Weight: 123lbs. oz. 55.285154kg; 18.00 BMI Method:Stated General Appearance: No Apparent Distress, WD/WN HEENT: PERRL/EOMI, Pharynx Normal Neck: Non Tender, Supple Respiratory: Lungs Clear, Normal Breath Sounds Cardiovascular: Regular Rate, Rhythm, No Murmur Gastrointestinal: Non Tender, Soft Back: Normal Inspection, No CVA Tenderness, No Vertebral Tenderness Extremity: Normal Range of Motion, Non Tender Neurologic/Psychiatric: Alert, Oriented x3 Skin: Normal Color, Warm/Dry Progress/Results/Core Measures Suspected Sepsis SIRS Temperature: Pulse: Respiratory Rate: Laboratory Tests 07/08/21 09:30: White Blood Count 6.2 Blood Pressure / Mean: Laboratory Tests 07/08/21 09:30: Creatinine 1.02, Platelet Count 292, Total Bilirubin 0.5 Results/Orders Lab Results Laboratory Tests Test 07/08/21 09:30 Range/Units White Blood Count 6.2 4.3-11.0 10^3/uL Red Blood Count 5.34 4.30-5.52 10^6/uL Hemoglobin 15.4 13.3-17.7 g/dL Hematocrit 44 40-54 % Mean Corpuscular Volume 83 80-99 fL Mean Corpuscular Hemoglobin 29 25-34 pg Mean Corpuscular Hemoglobin Concent 35 32-36 g/dL Red Cell Distribution Width 11.9 10.0-14.5 % Platelet Count 292 130-400 10^3/uL Mean Platelet Volume 9.8 9.0-12.2 fL Immature Granulocyte % (Auto) 0 % Neutrophils (%) (Auto) 59 42-75 % Lymphocytes (%) (Auto) 25 12-44 % Monocytes (%) (Auto) 8 0-12 % Eosinophils (%) (Auto) 6 0-10 % Basophils (%) (Auto) 1 0-10 % Neutrophils # (Auto) 3.7 1.8-7.8 10^3/uL Lymphocytes # (Auto) 1.6 1.0-4.0 10^3/uL Monocytes # (Auto) 0.5 0.0-1.0 10^3/uL Eosinophils # (Auto) 0.4 H 0.0-0.3 10^3/uL Basophils # (Auto) 0.1 0.0-0.1 10^3/uL Immature Granulocyte # (Auto) 0.0 0.0-0.1 10^3/uL Sodium Level 141 135-145 MMOL/L Potassium Level 3.8 3.6-5.0 MMOL/L Chloride Level 102 98-107 MMOL/L Carbon Dioxide Level 27 21-32 MMOL/L Anion Gap 12 5-14 MMOL/L Blood Urea Nitrogen 11 7-18 MG/DL Creatinine 1.02 0.60-1.30 MG/DL Estimat Glomerular Filtration Rate 90 BUN/Creatinine Ratio 11 Glucose Level 75 70-105 MG/DL Calcium Level 9.9 8.5-10.1 MG/DL Corrected Calcium 8.5-10.1 MG/DL Magnesium Level 2.1 1.6-2.4 MG/DL Total Bilirubin 0.5 0.1-1.0 MG/DL Aspartate Amino Transf (AST/SGOT) 21 5-34 U/L Alanine Aminotransferase (ALT/SGPT) 13 0-55 U/L Alkaline Phosphatase 67 40-136 U/L Total Protein 7.6 6.4-8.2 GM/DL Albumin 5.1 H 3.2-4.5 GM/DL My Orders Orders - ZAID ALFARO MD Cbc With Automated Diff (07/08/21:) Comprehensive Metabolic Panel (07/08/21:) Magnesium (07/08/21:) Lactated Ringers (Lr 1000 Ml Iv Solution (07/08/21:) Ed Iv/Invasive Line Start (07/08/21:) Vital Signs/I&O 07/08/21 09:20 Temp 36.3 Pulse 105 Resp 18 B/P (MAP) 146/80 (102) Pulse Ox 99 O2 Delivery Room Air Capillary Refill : Progress Note : Progress Note Seen and evaluated. IV, labs, LR 1 L bolus ordered. Patient did have near syncopal vasovagal episode with IV start but improved with positioning and time. Heart rate went from 90s to 50s and blood pressure declined but improved after headdown positioning. We did discuss the option of UA but patient declined and states that he'll follow-up with his doctor for that. That discussion came about because he said he had been urinating a lot but that was while drinking Mountain Dew. Denies pain or frequency otherwise. Has normal evaluation with respect to labs and thyroid studies on last visit in January and that visit was reviewed. This still seems to be likely diet related and this was discussed with the patient we will check labs. Monitor patient. 1056: Overall much improved. I did discuss with him regarding diet again. I will send a copy of the chart to his primary care physician and he will follow-up. Patient will avoid the sugary caffeinated beverages and try to normalize his diet. Discharged home with return precautions. Patient verbalized understanding instructions and agreement with plan. Departure Impression Primary Impression: Near syncope Disposition: 01 HOME, SELF-CARE Condition: Improved Departure-Patient Inst. Decision time for Depature: 11:10 Referrals: CLARK PARRA MD (PCP/Family) Primary Care Physician Patient Instructions: Near Fainting (DC), Orthostatic Hypotension (DC) Add. Discharge Instructions: All discharge instructions reviewed with patient and/or family. Voiced understanding. It is very important that you avoid sugary/caffeinated beverages and drink more fluids. It is important also that you start your day with regular diet. Follow-up with your doctor for recheck and further evaluation. Return for worse pain, fever, vomiting, weakness, breathing problems or other concerns as needed. Copy Copies To 1: CLARK PARRA MD, TIMOTHY D MD Jul 08, 2021 09:49
[2021-07-08 10:04] LABS: ALBUMIN 5.1 GM/DL (3.2-4.5); CHLORIDE 102 MMOL/L (98-107); POTASSIUM 3.8 MMOL/L (3.6-5.0); SODIUM 141 MMOL/L (135-145)
[2021-07-08 10:05] LABS: CALCIUM 9.9 MG/DL (8.5-10.1)
[2021-07-08 10:06] LABS: GLUCOSE 75 MG/DL (70-105); TOTAL PROTEIN 7.6 GM/DL (6.4-8.2)
[2021-07-08 10:07] LABS: CARBON DIOXIDE 27 MMOL/L (21-32)
[2021-07-08 10:08] LABS: BILIRUBIN,TOTAL 0.5 MG/DL (0.1-1.0)
[2021-07-08 10:10] LABS: ALKALINE PHOSPHATASE 67 U/L (40-136); CREATININE SERUM 1.02 MG/DL (0.60-1.30); GFR ESTIMATED 90
[2021-07-08 10:11] LABS: BUN/CREATININE RATIO 11
[2021-07-08 10:13] LABS: ALANINE AMINOTRANSFERASE 13 U/L (0-55); MAGNESIUM 2.1 MG/DL (1.6-2.4)
[2021-07-08 11:40] VITALS: BP 118/76
== END 2021-07-08 11:40 | disposition home or self-care (01) ==
LOC: EDUNIT# 09:15 → ER 09:16
DX: R55 Syncope and collapse (principal); J45.909 Unspecified asthma, uncomplicated; F41.9 Anxiety disorder, unspecified; Z79.899 Other long term (current) drug therapy
CPT/HCPCS: 36415; 80053; 83735; 85025

== ENCOUNTER 2022-01-23 10:01 | Outpatient (CLI) | payer BC ==
[~2022-01-23] VITALS: Ht 177.8 cm; Wt 65.3 kg
== END 2022-01-23 13:24 | disposition home or self-care (01) ==
LOC: PREOP 10:01
PROVIDERS: ATTEND Surgery
DX: Z01.818 Encounter for other preprocedural examination (principal)

== ENCOUNTER 2022-01-30 10:08 | Day surgery (SDC) | payer BC ==
[~2022-01-30] VITALS: Ht 178 cm; Wt 65.3 kg
[2022-01-30] MEDS ORDERED: LACTATED RINGERS 1,000 ML IV ONE (10:14)
[2022-01-30] MEDS ORDERED: LACTATED RINGERS 1,000 ML IV STA (10:17)
[2022-01-30 10:25] VITALS: BP 131/86
[2022-01-30] MEDS ORDERED: HURRICAINE EXT TUBE (BENZOCAINE) XX PRN (10:30)
[2022-01-30] MEDS ORDERED: LIDOCAINE JELLY 2% 6 ML SYRINGE MM PRN (10:30)
--- NOTE | 2022-01-30 10:50 | Progress Note-Pre Operative ---
Pre-Operative Progress Note H&P Reviewed The H&P was reviewed, patient examined and no changes noted. Date Seen by Provider: Jan 30, 2022 Time Seen by Provider: 10:45 Date H&P Reviewed: Jan 30, 2022 Time H&P Reviewed: 10:45 Pre-Operative Diagnosis: EVITA TYLER MD Jan 30, 2022 10:50
[2022-01-30] MEDS ORDERED: PANT40TA2 PO (10:51)
[2022-01-30] MEDS ORDERED: ONDANSETRON 4 MG/2 ML (SDV) Z0FRAN IVP PRN (11:00)
[2022-01-30] MEDS ORDERED: ONDANSETRON 4 MG (ZOFRAN) ORAL DISSOLVE TAB PO PRN (11:00)
[2022-01-30] MEDS ORDERED: MIDAZOLAM 2 MG/2 ML (VERSED) VIAL ONE (11:45)
[2022-01-30] MEDS ORDERED: PROPOFOL INJECTION 50 ML IV ONE (11:45)
[2022-01-30 12:10] VITALS: BP 115/56
[2022-01-30 12:15] VITALS: BP 96/44
[2022-01-30 12:20] VITALS: BP 98/51
[2022-01-30 12:27] VITALS: BP 102/57
--- NOTE | 2022-01-30 12:35 | Progress Note-Post Operative ---
Post-Operative Progess Note Surgeon (s)/Endoscopic Technician (s) Surgeon EVITA RAMIREZ MD Endoscopic Technician: none Pre-Operative Diagnosis GERD Post-Operative Diagnosis reflux esophagitis(grade B), small HH(2cm), moderate gastritis. Procedure & Operative Findings Date of Procedure 01/30/22 Procedure Performed/Findings EGD with bx. Anesthesia Type mac Estimated Blood Loss Estimated blood loss (mL): minimal Specimens/Packing Specimens Removed GE jxn, antrum EVITA RAMIREZ MD Jan 30, 2022 12:35
[2022-01-30 12:45] VITALS: BP 103/74
--- NOTE | 2022-01-30 14:50 | Anesthesia-General Post-Op ---
MAC Patient Condition Mental Status/LOC: Same as Preop Cardiovascular: Satisfactory Nausea/Vomiting: Absent Respiratory: Satisfactory Pain: Controlled Complications: Absent Post Op Complications Complications None Follow Up Care/Instructions Patient Instructions None needed. Anesthesiology Discharge Order Discharge Order Patient is doing well, no complaints, stable vital signs, no apparent adverse anesthesia problems. No complications reported per nursing. LEEANNE FUENTES CRNA Jan 30, 2022 14:50
--- NOTE | 2022-01-30 17:04 | OPERATIVE REPORT ---
DATE OF SERVICE: 01/30/2022 ATTENDING PRIMARY CARE PHYSICIAN: Ion Winston MD. PREOPERATIVE DIAGNOSIS: Gastroesophageal reflux disease. POSTOPERATIVE DIAGNOSES: Reflux esophagitis, Brazos grade B, small hiatal hernia 2 cm in size, and moderate gastritis. PROCEDURES PERFORMED: EGD with biopsy. SURGEON: Evita Ramirez MD. ANESTHESIA: Monitored anesthesia care. ESTIMATED BLOOD LOSS: Minimal. FINDINGS: Reflux esophagitis, Brazos grade B, small hiatal hernia 2 cm in size, and moderate gastritis. DISPOSITION: The patient tolerated the procedure well. INDICATIONS FOR PROCEDURE: The patient is a 26-year-old male, who has had issues with epigastric burning sensation as well as pain. He also has reflux. He states that for the past several months, this has been significant and he has been taking [id number] omeprazole, which initially helped some; however, has become less effective. He does have a number of risk factors for gastroesophageal reflux disease including history of smoking cigarettes for 10 years as well as chewing tobacco and currently does receive nicotine by vaping and does drink significant amounts of caffeinated beverages. DESCRIPTION OF PROCEDURE: The patient was brought to the endoscopy suite and laid in the left lateral decubitus position with the head slightly elevated. After adequate IV pain and sedative medications and monitored anesthesia care, the mouthpiece was applied. The endoscope was placed in the mouth, visualizing the pharynx and hypopharyngeal region. Vocal cords, epiglottis, and vallecula identified and appeared to be normal. The endoscope was then gently intubated into the esophageal opening and esophagus insufflated. The endoscope was then advanced through the first, second, and third portion of esophagus. At the level of the GE junction, reflux esophagitis, Brazos grade B identified. No ulcers or strictures were identified in this region. A biopsy was taken with forceps with visualization of good hemostasis. The endoscope was then advanced in the stomach and endoscope retroflexed, visualizing a small hiatal hernia approximately 2 cm in size. There was a moderate severity gastritis. No formal ulcerations, polyps or any neoplasms. Biopsy was taken of the antrum to rule out H. pylori with visualization of good hemostasis. The endoscope was then advanced through the pylorus and the first and second portions of the duodenum, which appeared normal with no ulcerations or any distal obstructions. The endoscope was then slowly withdrawn while taking a second look and suctioning of residual air with no additional findings. The patient tolerated the procedure well. We will recommend the necessary lifestyle and dietary accommodation including small and more frequent meals, avoidance of eating at night as well as head elevation while lying supine. He also needs to moderate caffeinated beverages as well as nicotine delivery with vaping. We will also start him on Protonix 40 mg daily. Job ID: [id number] DocumentID: [id number] Dictated Date: 01/30/2022 12:23:09 [employer] [place] Date: 01/30/2022 17:04:10 Dictated By: EVITA RAMIREZ MD [facility]
== END 2022-01-30 11:56 | disposition home or self-care (01) ==
LOC: ENDO 10:08
PROVIDERS: ATTEND Surgery
DX: K21.00 Gastro-esophageal reflux disease with esophagitis, without bleeding (principal); K44.9 Diaphragmatic hernia without obstruction or gangrene; K29.70 Gastritis, unspecified, without bleeding; F17.290 Nicotine dependence, other tobacco product, uncomplicated

== ENCOUNTER → 2023-01-30 | Outpatient (CLI) | payer OTHER, BC ==
[~2023-01-30] MED LIST changes: -MONT4GRA PO; +MONT4GRA14 PO; +PANT40TA2 PO
--- NOTE | 2023-01-30 16:43 | Diagnostic Imaging Report ---
EXAMINATION: Left shoulder radiographs, 3 views. COMPARISON: None. HISTORY: 27-year-old male, left shoulder pain. FINDINGS: The humeral head is normally positioned relative to the glenoid. The glenohumeral joint space is well maintained. The acromioclavicular joint is normally aligned. There are no acromioclavicular or glenohumeral degenerative changes. There is no acute fracture. IMPRESSION: Unremarkable radiographs of the left shoulder. Dictated by: Dictated on workstation # [id number]
--- NOTE | 2023-01-30 17:12 | Diagnostic Imaging Report ---
INDICATION: Chronic neck pain. COMPARISON: No comparison available FINDINGS: Cervical spine alignment is normal. The vertebral body heights are well-maintained. The disc spaces are preserved. The facets are normally aligned. There is no abnormal prevertebral soft tissue thickening or widening of the predental space. The odontoid view demonstrates normal relationships. The lung apices are clear. IMPRESSION: 1. Normal height and alignment of the cervical spine. Dictated by: Dictated on workstation # [id number]
== END ==
LOC: RAD 13:44
PROVIDERS: ATTEND Family Medicine
DX: M54.2 Cervicalgia (principal); M25.512 Pain in left shoulder
CPT/HCPCS: 72040; 73030